=== PATIENT | female | born 1960 | race Caucasian/White ===

== ENCOUNTER 2016-10-22 19:50 | Emergency (ER) | payer OTHER ==
--- NOTE | 2016-10-22 21:57 | ED ORDER SUMMARY ---
..... Patient: AGUS FRAGOSO OrderSheet [facility] VisitID: [id number] [address] [place] [address] 56y, F Registration Date/Time: 10/22/2016 ORDER SHEET Weight: 93.4 kg (stated) Allergies: Penicillins, Sulfa Antibiotics GENERAL ORDERS: CBC w Diff Urgent (20:03 10/22/2016 Rose CONDE) (Ack 20:05 [facility] Applied Anthropologist) (20:28 EInderbitzen R.N.) CMP Urgent (20:03 10/22/2016 Rose CONDE) (Ack 20:05 [facility] Applied Anthropologist) (20:28 EInderbitzen R.N.) PCT (Procalcitonin) Urgent (20:03 10/22/2016 Rose CONDE) (Ack 20:05 [facility] Applied Anthropologist) (20:28 EInderlesiazen R.N.) Lactate, Serum Urgent (20:03 10/22/2016 Rose CONDE) (Ack 20:05 [facility] Applied Anthropologist) (20:28 EInderbitzen R.N.) D-Dimer Urgent (20:16 10/22/2016 Rose CONDE) (Ack 20:17 [facility] Applied Anthropologist) (20:28 EInderbitzen R.N.) MEDICATION ORDERS: IV FLUIDS: IV NS : initial bolus none -, then 250 mL/hr (NOW); Urgent (20:02 10/22/2016 Rose CONDE) (Ack 20:05 ALOollier R.N.) (20:29 EInderbitzen R.N.) Dilaudid IV 0.5 mg (may repeat in 15min PRN pain) (20:43 10/22/2016 RCollier R.N. verbal order read back to Rose CONDE) (Ack 20:44 RCollier R.N.) (20:47 RCollier R.N.) Vancomycin IV 2 gm/500 mL (NOW) (20:55 10/22/2016 Rose CONDE) (21:04 EInderbitzen R.N.) ORDER SHEET NOTES: [Electronically signed by Elvira Mi R.N. (22:02 10/22/2016)] [Electronically signed by Hi Eden MD (23:13 10/22/2016)] [Electronically locked/signed by Elvira Mi R.N. (22:02 10/22/2016)]
--- NOTE | 2016-10-22 21:57 | ED ORDER SUMMARY ---
..... Patient: AGUS FRAGOSO OrderSheet [facility] VisitID: [id number] [address] [place] [address] 56y, F Registration Date/Time: 10/22/2016 ORDER SHEET Weight: 93.4 kg (stated) Allergies: Penicillins, Sulfa Antibiotics GENERAL ORDERS: CBC w Diff Urgent (20:03 10/22/2016 Rose CONDE) (Ack 20:05 [facility] Solder Technician) (20:28 EInderbitzen R.N.) CMP Urgent (20:03 10/22/2016 Rose CONDE) (Ack 20:05 [facility] Solder Technician) (20:28 EInderbitzen R.N.) PCT (Procalcitonin) Urgent (20:03 10/22/2016 Rose CONDE) (Ack 20:05 [facility] Solder Technician) (20:28 EInderlesiazen R.N.) Lactate, Serum Urgent (20:03 10/22/2016 Rose CONDE) (Ack 20:05 [facility] Solder Technician) (20:28 EInderbitzen R.N.) D-Dimer Urgent (20:16 10/22/2016 Rose CONDE) (Ack 20:17 [facility] Solder Technician) (20:28 EInderbitzen R.N.) MEDICATION ORDERS: IV FLUIDS: IV NS : initial bolus none -, then 250 mL/hr (NOW); Urgent (20:02 10/22/2016 Rose CONDE) (Ack 20:05 ALOollier R.N.) (20:29 EInderbitzen R.N.) Dilaudid IV 0.5 mg (may repeat in 15min PRN pain) (20:43 10/22/2016 RCollier R.N. verbal order read back to Rose CONDE) (Ack 20:44 RCollier R.N.) (20:47 RCollier R.N.) Vancomycin IV 2 gm/500 mL (NOW) (20:55 10/22/2016 Rose CONDE) (21:04 EInderbitzen R.N.) ORDER SHEET NOTES: [Electronically signed by Elvira Mi R.N. (22:02 10/22/2016)] [Electronically signed by Hi Eden MD (23:13 10/22/2016)] [Electronically locked/signed by Elvira Mi R.N. (22:02 10/22/2016)]
--- NOTE | 2016-10-22 21:57 | ED NURSING NOTES ---
Clinical Report - Nurses [facility] [address] [place] [address] 10/22/2016 19:52 [id number] Triage time 19:58. Acuity: LEVEL 3. Chief Complaint: POSSIBLE ALLERGIC REACTION and SWELLING Alert. No acute distress. --20:03 Ailyn Rojas R.N. 19:58 10/22/16. BP: 176/78. HR: 117. RR: 17 (regular and unlabored). O2 saturation: 100%. Temp: 98.4 F (oral). Jones-Mendenhall pain scale: 4/10. --20:03 Ailyn Rojas R.N. Weight: 93.4 kg stated. Height/Length: 65 inches Per Patient. BMI: 34.3. --20:00 Ailyn Rojas R.N. Medications Cymbalta Oral 30mg , daily. Lyrica Oral (pt unsure of dose ). Omeprazole Oral 20 mg, daily. Orencia Intravenous. Pepcid Oral, as needed. PredniSONE Oral 2.5 mg, daily, RA. --20:01 Ailyn Rojas R.N. Allergies Penicillins. --20:01 Ailyn Rojas R.N. Sulfa Antibiotics. --20:02 Ailyn Rojas R.N. History Arrived by private vehicle. Historian: patient. Primary physician (Sonya). ( pt states she steamed cleaned a car which had mold in it, pt woke up the next day with facial swelling, saw PCP 3 days ago.). Onset. (about 4 days ago). No difficulty breathing. PAST MEDICAL HX: Immunizations: status is unknown. SOCIAL HX: Never smoker. No alcohol use or drug use. NUTRITIONAL RISK ASSESSMENT: The nutritional risk assessment revealed no deficiencies. FUNCTIONAL ASSESSMENT: Functional assessment: no impairments noted. --20:03 Ailyn Rojas R.N. 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 (3 tablets today around 1300 (swelling got worse after Benadryl)). --20:05 Ailyn Rojas R.N. PROBLEMS: Cellulitis. MRSA Infection. Irritable Bowel Syndrome. Gastroesophageal Reflux Disease. Rheumatoid Arthritis. Rheumatic Fever. Arthritis. Fibromyalgia. --20:02 Ailyn Rojas R.N. ADDITIONAL SURGERIES: Cholecystectomy. --20:02 Ailyn Rojas R.N. Interventions ID band on patient. To treatment room. --20:03 Ailyn Rojas R.N. PHYSICAL ASSESSMENT Ambulatory to room. Patient gowned. GENERAL / NEURO / PSYCH: Alert. The patient does not appear to be in acute distress. Oriented X 4. HEENT: Mucous membranes are pink. RESPIRATORY: Respirations not labored. CVS: Capillary refill less than 2 seconds. SKIN: Skin is warm and dry. Swelling on the face- associated with erythema. --20:04 Ailyn Rojas R.N. NURSING PROGRESS NOTES Head of bed elevated. Two patient identifiers checked. Call light placed in reach. Side rails up x 1. Bed placed in lowest position. Brakes of bed on. --20:04 Ailyn Rojas R.N. Patient ready for evaluation- chart flagged. --20:04 Ailyn Rojas R.N. 20:22 10/22/2016 Site #1 started via IV in the left forearm with an 20g angiocath, with aseptic technique and good blood return; one attempt. Blood drawn: rainbow set. Labeled in the presence of the patient and sent to the lab. Saline lock flushed with 10 mL saline (lactic drawn and placed on ice). --20:28 Elvira Mi R.N. 20:22 10/22/2016 Started bag #1 250 mL IV Fluids IV NS (Saline); at 1000 mL/hr over 15 minute(s) via site #1. Allergies verified and confirmed 5 rights. IV patency established. IV site checked: no pain, redness, or swelling. IV flushed thoroughly pre- and post-medication administration. --20:29 Elvira Mi R.N. 20:45 10/22/2016 Dilaudid (HYDROmorphone HCl PF) IVP 0.5 mg given over 1 minute(s) via site #1. Allergies verified, confirmed 5 rights and sedative warning given to the patient. IV patency established. IV site checked: no pain, redness, or swelling. IV flushed thoroughly pre- and post-medication administration. IVP given by RN. --20:47 Ailyn Rojas R.N. 21:00 10/22/2016 Started 1 gm of Vancomycin IVPB in bag #1 200 mL; at 200 mL/hr over 1 hour(s) via site #1 via IV pump. Allergies verified and confirmed 5 rights. IV patency established. IV site checked: no pain, redness, or swelling. IV flushed thoroughly pre- and post-medication administration. --21:04 Elvira Mi R.N. 21:28 10/22/16. BP: 161/84. HR: 103. RR: 18. O2 saturation: 100%. Pain level now 7/10. --21:28 Elvira Mi R.N. 21:55 10/22/16. ( Report given to transport crew. RN will start [address] [place] [address].). --21:55 Elvira Mi R.N. 22:37 10/22/2016 IV Fluids IV NS Discontinued: bag #1 completed. Total amount infused: 250 mL. IV patency established. IV site checked: no pain, redness, or swelling. IV flushed thoroughly. --21:03 Elvira Mi R.N. DISPOSITION / DISCHARGE 21:45 10/22/2016 Site #[address] upon transfer; patent. --21:57 Elvira Mi R.N. 21:45 10/22/2016 Vancomycin IVPB Continued: upon transfer at the rate of 200 mL/hr. 50 mL remaining bag #1. IV patency established. IV site checked: no pain, redness, or swelling. IV flushed thoroughly. --21:56 Elvira Mi R.N. 21:57 10/22/16. Condition at departure: improved and stable. The goals identified in the patient's plan of care were met. Transferred to [facility]. Summary of care provided to transport team (direct to ED). Transported via ambulance by transport team with monitor and IV. --21:57 Elvira Mi R.N. 21:27 10/22/16. BP: 161/84. HR: 103. RR: 18. O2 saturation: 100%. Pain level now 710. 19:58 10/22/16. BP: 176/78. HR: 117. RR: 17 (regular and unlabored). O2 saturation: 100%. Temp: 98.4 F (oral). Jones-Mendenhall pain scale: 4/10. --21:57 Elvira Mi R.N. 22:01 10/22/16. Report was given to a nurse. (NETO Hanson). --22:01 Elvira Mi R.N. Departure time: 22:01 Oct 22 2016. --22:02 Elvira Mi R.N. Locked/Released at 10/22/2016 22:02 by Elvira Mi R.N.
--- NOTE | 2016-10-22 21:57 | ED NURSING NOTES ---
Clinical Report - Nurses [facility] [address] [place] [address] 10/22/2016 19:52 [id number] Triage time 19:58. Acuity: LEVEL 3. Chief Complaint: POSSIBLE ALLERGIC REACTION and SWELLING Alert. No acute distress. --20:03 Ailyn Rojas R.N. 19:58 10/22/16. BP: 176/78. HR: 117. RR: 17 (regular and unlabored). O2 saturation: 100%. Temp: 98.4 F (oral). Jones-Mendenhall pain scale: 4/10. --20:03 Ailyn Rojas R.N. Weight: 93.4 kg stated. Height/Length: 65 inches Per Patient. BMI: 34.3. --20:00 Ailyn Rojas R.N. Medications Cymbalta Oral 30mg , daily. Lyrica Oral (pt unsure of dose ). Omeprazole Oral 20 mg, daily. Orencia Intravenous. Pepcid Oral, as needed. PredniSONE Oral 2.5 mg, daily, RA. --20:01 Ailyn Rojas R.N. Allergies Penicillins. --20:01 Ailyn Rojas R.N. Sulfa Antibiotics. --20:02 Ailyn Rojas R.N. History Arrived by private vehicle. Historian: patient. Primary physician (Sonya). ( pt states she steamed cleaned a car which had mold in it, pt woke up the next day with facial swelling, saw PCP 3 days ago.). Onset. (about 4 days ago). No difficulty breathing. PAST MEDICAL HX: Immunizations: status is unknown. SOCIAL HX: Never smoker. No alcohol use or drug use. NUTRITIONAL RISK ASSESSMENT: The nutritional risk assessment revealed no deficiencies. FUNCTIONAL ASSESSMENT: Functional assessment: no impairments noted. --20:03 Ailyn Rojas R.N. 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 (3 tablets today around 1300 (swelling got worse after Benadryl)). --20:05 Ailyn Rojas R.N. PROBLEMS: Cellulitis. MRSA Infection. Irritable Bowel Syndrome. Gastroesophageal Reflux Disease. Rheumatoid Arthritis. Rheumatic Fever. Arthritis. Fibromyalgia. --20:02 Ailyn Rojas R.N. ADDITIONAL SURGERIES: Cholecystectomy. --20:02 Ailyn Rojas R.N. Interventions ID band on patient. To treatment room. --20:03 Ailyn Rojas R.N. PHYSICAL ASSESSMENT Ambulatory to room. Patient gowned. GENERAL / NEURO / PSYCH: Alert. The patient does not appear to be in acute distress. Oriented X 4. HEENT: Mucous membranes are pink. RESPIRATORY: Respirations not labored. CVS: Capillary refill less than 2 seconds. SKIN: Skin is warm and dry. Swelling on the face- associated with erythema. --20:04 Ailyn Rojas R.N. NURSING PROGRESS NOTES Head of bed elevated. Two patient identifiers checked. Call light placed in reach. Side rails up x 1. Bed placed in lowest position. Brakes of bed on. --20:04 Ailyn Rojas R.N. Patient ready for evaluation- chart flagged. --20:04 Ailyn Rojas R.N. 20:22 10/22/2016 Site #1 started via IV in the left forearm with an 20g angiocath, with aseptic technique and good blood return; one attempt. Blood drawn: rainbow set. Labeled in the presence of the patient and sent to the lab. Saline lock flushed with 10 mL saline (lactic drawn and placed on ice). --20:28 Elvira iM R.N. 20:22 10/22/2016 Started bag #1 250 mL IV Fluids IV NS (Saline); at 1000 mL/hr over 15 minute(s) via site #1. Allergies verified and confirmed 5 rights. IV patency established. IV site checked: no pain, redness, or swelling. IV flushed thoroughly pre- and post-medication administration. --20:29 Elvira Mi R.N. 20:45 10/22/2016 Dilaudid (HYDROmorphone HCl PF) IVP 0.5 mg given over 1 minute(s) via site #1. Allergies verified, confirmed 5 rights and sedative warning given to the patient. IV patency established. IV site checked: no pain, redness, or swelling. IV flushed thoroughly pre- and post-medication administration. IVP given by RN. --20:47 Ailyn Rojas R.N. 21:00 10/22/2016 Started 1 gm of Vancomycin IVPB in bag #1 200 mL; at 200 mL/hr over 1 hour(s) via site #1 via IV pump. Allergies verified and confirmed 5 rights. IV patency established. IV site checked: no pain, redness, or swelling. IV flushed thoroughly pre- and post-medication administration. --21:04 Elvira Mi R.N. 21:28 10/22/16. BP: 161/84. HR: 103. RR: 18. O2 saturation: 100%. Pain level now 7/10. --21:28 Elvira Mi R.N. 21:55 10/22/16. ( Report given to transport crew. RN will start [address] [place] [address].). --21:55 Elvira Mi R.N. 22:37 10/22/2016 IV Fluids IV NS Discontinued: bag #1 completed. Total amount infused: 250 mL. IV patency established. IV site checked: no pain, redness, or swelling. IV flushed thoroughly. --21:03 Elvira Mi R.N. DISPOSITION / DISCHARGE 21:45 10/22/2016 Site #[address] upon transfer; patent. --21:57 Elvira Mi R.N. 21:45 10/22/2016 Vancomycin IVPB Continued: upon transfer at the rate of 200 mL/hr. 50 mL remaining bag #1. IV patency established. IV site checked: no pain, redness, or swelling. IV flushed thoroughly. --21:56 Elvira Mi R.N. 21:57 10/22/16. Condition at departure: improved and stable. The goals identified in the patient's plan of care were met. Transferred to [facility]. Summary of care provided to transport team (direct to ED). Transported via ambulance by transport team with monitor and IV. --21:57 Elvira Mi R.N. 21:27 10/22/16. BP: 161/84. HR: 103. RR: 18. O2 saturation: 100%. Pain level now 710. 19:58 10/22/16. BP: 176/78. HR: 117. RR: 17 (regular and unlabored). O2 saturation: 100%. Temp: 98.4 F (oral). Jones-Mendenhall pain scale: 4/10. --21:57 Elvira Mi R.N. 22:01 10/22/16. Report was given to a nurse. (NETO Hanson). --22:01 Elvira Mi R.N. Departure time: 22:01 Oct 22 2016. --22:02 Elvira Mi R.N. Locked/Released at 10/22/2016 22:02 by Elvira Mi R.N.
--- NOTE | 2016-10-22 21:57 | ED CLINICAL REPORT ---
Clinical Report - Physicians/Mid Levels [facility] [address] [place] [address] 10/22/2016 19:52 Patient: AGUS FRAGOSO Time Seen: 20:00. Arrived- By private vehicle. HISTORY OF PRESENT ILLNESS Chief Complaint: FACIAL SWELLING. This started about 4 days ago.; Symptoms temporally associated with cleaning mold in an enclosed spake. The eyes did not burn with the use of the mold sheet cleaner. The swelling Started Wednesday (4 days ago) with sore inside nose on L and outside puffy in both sides. PCP, Sonya Wed - Thought it was mold and chemicals Tx with Prednisone - 40 mg prednisone. Tues: Working around the car, Cheeks and eye lids swollen and swollen in [place].. [facility] [place] - Rx prednisone 80 mg, ranitidine one daily, Benadryl 50 mg and 75 mg today. and is still present. It was gradual in onset. The patient has had a skin rash and swelling. No cause has been identified. The patient self administered medication prior to arrival including Benadryl and steroids. Similar symptoms previously: ( History of MRSA. Those episodes were much milder.). Recent medical care: The patient was seen recently by a health care provider. ( two prior healthcare evaluations for this illness.). REVIEW OF SYSTEMS The patient has had eye problems, skin lesion; and a headache. No fever, double vision, ear pain, sore throat or chest pain. No cough, difficulty breathing, abdominal pain, black stools or bloody stools. No diarrhea, nausea, vomiting or difficulty with urination. The patient has missed periods (menopause). All systems otherwise negative, except as recorded above. PAST HISTORY PCP: Jordan Leone Ops: GB Illness: RA, fipromyalgia, osteoarthritis. Medications: Cymbalta Oral 30mg , daily. Lyrica Oral (pt unsure of dose ). Omeprazole Oral 20 mg, daily. Orencia Intravenous. Pepcid Oral, as needed. PredniSONE Oral 2.5 mg, daily, RA. Allergies: Penicillins. Sulfa Antibiotics. SOCIAL HISTORY Never smoker. ADDITIONAL NOTES The nursing notes have been reviewed. PHYSICAL EXAM Vital Signs: 10/22/2016 19:58 BP: 176/78. HR: 117. RR: 17. O2 saturation: 100%. Temp: 98.4 F. Jones-Mendenhall pain scale: 4/10. Appearance: Alert. Patient in moderate distress. (Uncomfortable from facial swelling. Normal voice and clear lungs.). Eyes: Conjunctival findings present (cannot visualize the R eye due to lid swelling). No redness on the left or exudate on the left. (Swelling, erythema and warmth greatest over the R cheek, less but quite significant over the L cheek and forehead. EOM painless.). ENT: No muffled or hoarse voice, drooling or pharyngeal erythema. Neck: No lymphadenopathy. CVS: Normal heart rate and rhythm. Respiratory: No respiratory distress. No respiratory distress. Breath sounds normal. No stridor. Abdomen: Nontender. No organomegaly. Extremities: Normal external inspection. Extremities nontender. (changes CW RA). Skin: No urticaria. LABS, X-RAYS, AND EKG Laboratory Tests: CBC w Diff: (KELL: 10/22/2016 20:22) ( MsgRcvd 10/22/2016 21:05) Final results Test Result Flag Units (Reference) WHITE BLOOD COUNT 24.5 H K/uL (4.5-11.5) MANUAL DIFFERENTIAL TO FOLLOW. RED BLOOD COUNT 3.71 L M/uL (4.00-5.20) HEMOGLOBIN 11.5 L gm/dL (12.0-16.0) HEMATOCRIT 34.2 L % (36.0-46.0) MEAN CELL VOLUME 92 fL (80-100) MEAN CORPUSCULAR HGB 31 pg (26-34) MEAN CORPUSCULAR HGB CONC 34 g/dL (31-37) RED CELL DISTRIBUTION WIDTH 13.4 % (11.6-14.8) PLATELET COUNT 223 K/uL (150-400) POLY % 80 H % (50-75) BAND % 7 % (0-8) LYMPH 8 L % (25-40) MONO 5 % (3-14) EOSINOPHIL % 0 % (0-4) BASOPHIL % 0 % (0-2) METAMYELOCYTE % 0 % (0-1) MYELOCYTE 0 % (0-1) OTHER CELL TYPE 0 RBC MORPHOLOGY NORMAL [id number]: (KELL: 10/22/2016 20:22) ( [facility] 10/22/2016 20:48) Final results Test Result Flag Units (Reference) D-DIMER QUANTITATIVE 1.04 H ug/mLFEU (0.27-0.52) The primary value of this quantitative assay relates toits negative predictive value (i.e. exclusion) of pulmonaryembolism/deep vein thrombosis/DIC.Elevated levels of d-dimer may also occur with:, age, cancer, inflammation, liver disease,post-op, infection, hematoma, coronary disease, peripheralarteriopathy, bleeding disorders and thrombolytic treatment.Results should be correlated with other clinical andradiological data.Testing Methodology: Latex Immunoassay Lactate, Serum: (KELL: 10/22/2016 20:22) ( [facility] 10/22/2016 21:05) Final results Test Result Flag Units (Reference) LACTIC ACID 1.8 mmol/L (0.4-2.0) [id number]: (KELL: 10/22/2016 20:22) ( [facility] 10/22/2016 21:25) Final results Test Result Flag Units (Reference) PROCALCITONIN <0.5 ng/mL (0-0.5) PCT Concentration: Interpretation : Risk/option for action PCT <=0.5 ng/mL : Systemic : Low risk forinfection(sepsis): progression to severeis not likely. : systemic infection.Local bacterial : CAUTION-PCT levelsinfection is : below 0.5 ng/mL do notpossible. : exclude an infection,because localizedinfections (withoutsystemic signs) may beassociated with suchlow levels. If PCT ismeasured very earlyafter a bacterialchallenge (usually <6hours), these valuesmay still be low. Inthis case PCT shouldbe re-assessed 6-24hours later. PCT >0.5 and : Systemic infection: Moderate risk for<= 2 ng/mL : (sepsis) is : progression to severepossible, but : systemic infection.other conditions : The patient should beare known to : closely monitoredelevate PCT. : both clinically andby re-assessing PCTwithin 6-24 hours. PCT > 2 ng/mL : Systemic infection: High risk for(sepsis) is likely: progression to severeunless other : systemic infection.causes are known. : PCT >= 10 ng/mL : Important systemic: High likelihood ofinflammatory : severe sepsis orresponse, almost : septic shock.exclusively due to:severe bacterial :sepsis or septic :shock. : CMP: (KELL: 10/22/2016 20:22) ( MsgRcvd 10/22/2016 20:54) Final results Test Result Flag Units (Reference) GLUCOSE 188 H mg/dL (70-110) BUN 23 H mg/dL (7-18) CREATININE 1.4 H mg/dL (0.6-1.3) Estimated GFR 41.34 mL/min Estimated GFR- 50.11 mL/min Note: Persistent reduction over 3 months in eGFR<60 mL/min/1.73 m2 defines CKD. Patients with eGFR values>=60 mL/min/1.73 m2 may also have CKD if evidence ofpersistent proteinuria. Additional information may be foundat www.kidney.org. SODIUM 134 L mmol/L (136-145) POTASSIUM 3.7 mmol/L (3.5-5.1) CHLORIDE 98 mmol/L (98-107) CARBON DIOXIDE 23 mmol/L (21-32) CALCIUM 8.9 mg/dL (8.5-10.1) TOTAL PROTEIN 7.4 g/dL (6.4-8.2) ALBUMIN 3.2 L g/dL (3.3-5.0) BILIRUBIN, TOTAL 0.5 mg/dL (0.0-1.0) ALKALINE PHOSPHATASE 114 U/L (46-116) AST (SGOT) 36 U/L (15-37) ALT (SGPT) 95 H U/L (12-78) . PROGRESS AND PROCEDURES Course of Care: 20:00 10/22/16. initial exam - intact airway and respiration. Moderate to marked swelling of the face. 20:32 10/22/16. Warm skin - tender and edema. Facial cellulitis is most likely, venous sinus thrombosis far less likely but an important consideration. Allergy seems quite unlikely. Nothing to culture will start vancomycin pending other studies. She will need a CT but our CT will not be functional in the next 12 plus hours. Will obtain baseline labs. Initiate culture then discuss findings with another facility. 21:13 10/22/16. 4 days of increasing facial swelling and pain in an immune compromised woman with the appearance of facial cellulitis. Vanco is ordered. CT here is not functional. I discussed the patient with Dr Vonda Carter [place] [facility] who agrees to see her in the ED in and ED to ED transfer. 21:28 10/22/16. Elvira Carrillo RN tells me she will call the ED charge nurse. I have called EDMD. Transfer form is completed. 21:57 10/22/16. Pt is now enroute to [facility] ED via ALS. 23:11 10/22/16. PCT available following the patient's transfer to [facility]. Disposition: Transferred. CLINICAL IMPRESSION FACIAL CELLULITIS IMMUNOSUPPRESION HISTORY OF RA. (Electronically signed by Hi Eden MD 10/22/2016 23:13)
--- NOTE | 2016-10-22 21:57 | ED CLINICAL REPORT ---
Clinical Report - Physicians/Mid Levels [facility] [address] [place] [address] 10/22/2016 19:52 Patient: AGUS FRAGOSO Time Seen: 20:00. Arrived- By private vehicle. HISTORY OF PRESENT ILLNESS Chief Complaint: FACIAL SWELLING. This started about 4 days ago.; Symptoms temporally associated with cleaning mold in an enclosed spake. The eyes did not burn with the use of the boat cleaner. The swelling Started Wednesday (4 days ago) with sore inside nose on L and outside puffy in both sides. PCP, Sonya Wed - Thought it was mold and chemicals Tx with Prednisone - 40 mg prednisone. Tues: Working around the car, Cheeks and eye lids swollen and swollen in [place].. [facility] Wednesday [place] - Rx prednisone 80 mg, ranitidine one daily, Benadryl 50 mg and 75 mg today. and is still present. It was gradual in onset. The patient has had a skin rash and swelling. No cause has been identified. The patient self administered medication prior to arrival including Benadryl and steroids. Similar symptoms previously: ( History of MRSA. Those episodes were much milder.). Recent medical care: The patient was seen recently by a health care provider. ( two prior healthcare evaluations for this illness.). REVIEW OF SYSTEMS The patient has had eye problems, skin lesion; and a headache. No fever, double vision, ear pain, sore throat or chest pain. No cough, difficulty breathing, abdominal pain, black stools or bloody stools. No diarrhea, nausea, vomiting or difficulty with urination. The patient has missed periods (menopause). All systems otherwise negative, except as recorded above. PAST HISTORY PCP: Jordan Leone Ops: GB Illness: RA, fipromyalgia, osteoarthritis. Medications: Cymbalta Oral 30mg , daily. Lyrica Oral (pt unsure of dose ). Omeprazole Oral 20 mg, daily. Orencia Intravenous. Pepcid Oral, as needed. PredniSONE Oral 2.5 mg, daily, RA. Allergies: Penicillins. Sulfa Antibiotics. SOCIAL HISTORY Never smoker. ADDITIONAL NOTES The nursing notes have been reviewed. PHYSICAL EXAM Vital Signs: 10/22/2016 19:58 BP: 176/78. HR: 117. RR: 17. O2 saturation: 100%. Temp: 98.4 F. Jones-Mendenhall pain scale: 4/10. Appearance: Alert. Patient in moderate distress. (Uncomfortable from facial swelling. Normal voice and clear lungs.). Eyes: Conjunctival findings present (cannot visualize the R eye due to lid swelling). No redness on the left or exudate on the left. (Swelling, erythema and warmth greatest over the R cheek, less but quite significant over the L cheek and forehead. EOM painless.). ENT: No muffled or hoarse voice, drooling or pharyngeal erythema. Neck: No lymphadenopathy. CVS: Normal heart rate and rhythm. Respiratory: No respiratory distress. No respiratory distress. Breath sounds normal. No stridor. Abdomen: Nontender. No organomegaly. Extremities: Normal external inspection. Extremities nontender. (changes CW RA). Skin: No urticaria. LABS, X-RAYS, AND EKG Laboratory Tests: CBC w Diff: (KELL: 10/22/2016 20:22) ( MsgRcvd 10/22/2016 21:05) Final results Test Result Flag Units (Reference) WHITE BLOOD COUNT 24.5 H K/uL (4.5-11.5) MANUAL DIFFERENTIAL TO FOLLOW. RED BLOOD COUNT 3.71 L M/uL (4.00-5.20) HEMOGLOBIN 11.5 L gm/dL (12.0-16.0) HEMATOCRIT 34.2 L % (36.0-46.0) MEAN CELL VOLUME 92 fL (80-100) MEAN CORPUSCULAR HGB 31 pg (26-34) MEAN CORPUSCULAR HGB CONC 34 g/dL (31-37) RED CELL DISTRIBUTION WIDTH 13.4 % (11.6-14.8) PLATELET COUNT 223 K/uL (150-400) POLY % 80 H % (50-75) BAND % 7 % (0-8) LYMPH 8 L % (25-40) MONO 5 % (3-14) EOSINOPHIL % 0 % (0-4) BASOPHIL % 0 % (0-2) METAMYELOCYTE % 0 % (0-1) MYELOCYTE 0 % (0-1) OTHER CELL TYPE 0 RBC MORPHOLOGY NORMAL [id number]: (KELL: 10/22/2016 20:22) ( [facility] 10/22/2016 20:48) Final results Test Result Flag Units (Reference) D-DIMER QUANTITATIVE 1.04 H ug/mLFEU (0.27-0.52) The primary value of this quantitative assay relates toits negative predictive value (i.e. exclusion) of pulmonaryembolism/deep vein thrombosis/DIC.Elevated levels of d-dimer may also occur with:, age, cancer, inflammation, liver disease,post-op, infection, hematoma, coronary disease, peripheralarteriopathy, bleeding disorders and thrombolytic treatment.Results should be correlated with other clinical andradiological data.Testing Methodology: Latex Immunoassay Lactate, Serum: (KELL: 10/22/2016 20:22) ( [facility] 10/22/2016 21:05) Final results Test Result Flag Units (Reference) LACTIC ACID 1.8 mmol/L (0.4-2.0) [id number]: (KELL: 10/22/2016 20:22) ( [facility] 10/22/2016 21:25) Final results Test Result Flag Units (Reference) PROCALCITONIN <0.5 ng/mL (0-0.5) PCT Concentration: Interpretation : Risk/option for action PCT <=0.5 ng/mL : Systemic : Low risk forinfection(sepsis): progression to severeis not likely. : systemic infection.Local bacterial : CAUTION-PCT levelsinfection is : below 0.5 ng/mL do notpossible. : exclude an infection,because localizedinfections (withoutsystemic signs) may beassociated with suchlow levels. If PCT ismeasured very earlyafter a bacterialchallenge (usually <6hours), these valuesmay still be low. Inthis case PCT shouldbe re-assessed 6-24hours later. PCT >0.5 and : Systemic infection: Moderate risk for<= 2 ng/mL : (sepsis) is : progression to severepossible, but : systemic infection.other conditions : The patient should beare known to : closely monitoredelevate PCT. : both clinically andby re-assessing PCTwithin 6-24 hours. PCT > 2 ng/mL : Systemic infection: High risk for(sepsis) is likely: progression to severeunless other : systemic infection.causes are known. : PCT >= 10 ng/mL : Important systemic: High likelihood ofinflammatory : severe sepsis orresponse, almost : septic shock.exclusively due to:severe bacterial :sepsis or septic :shock. : CMP: (KELL: 10/22/2016 20:22) ( MsgRcvd 10/22/2016 20:54) Final results Test Result Flag Units (Reference) GLUCOSE 188 H mg/dL (70-110) BUN 23 H mg/dL (7-18) CREATININE 1.4 H mg/dL (0.6-1.3) Estimated GFR 41.34 mL/min Estimated GFR- 50.11 mL/min Note: Persistent reduction over 3 months in eGFR<60 mL/min/1.73 m2 defines CKD. Patients with eGFR values>=60 mL/min/1.73 m2 may also have CKD if evidence ofpersistent proteinuria. Additional information may be foundat www.kidney.org. SODIUM 134 L mmol/L (136-145) POTASSIUM 3.7 mmol/L (3.5-5.1) CHLORIDE 98 mmol/L (98-107) CARBON DIOXIDE 23 mmol/L (21-32) CALCIUM 8.9 mg/dL (8.5-10.1) TOTAL PROTEIN 7.4 g/dL (6.4-8.2) ALBUMIN 3.2 L g/dL (3.3-5.0) BILIRUBIN, TOTAL 0.5 mg/dL (0.0-1.0) ALKALINE PHOSPHATASE 114 U/L (46-116) AST (SGOT) 36 U/L (15-37) ALT (SGPT) 95 H U/L (12-78) . PROGRESS AND PROCEDURES Course of Care: 20:00 10/22/16. initial exam - intact airway and respiration. Moderate to marked swelling of the face. 20:32 10/22/16. Warm skin - tender and edema. Facial cellulitis is most likely, venous sinus thrombosis far less likely but an important consideration. Allergy seems quite unlikely. Nothing to culture will start vancomycin pending other studies. She will need a CT but our CT will not be functional in the next 12 plus hours. Will obtain baseline labs. Initiate culture then discuss findings with another facility. 21:13 10/22/16. 4 days of increasing facial swelling and pain in an immune compromised woman with the appearance of facial cellulitis. Vanco is ordered. CT here is not functional. I discussed the patient with Dr Vonda Carter [place] [facility] who agrees to see her in the ED in and ED to ED transfer. 21:28 10/22/16. Elvira Carrillo RN tells me she will call the ED charge nurse. I have called EDMD. Transfer form is completed. 21:57 10/22/16. Pt is now enroute to [facility] ED via ALS. 23:11 10/22/16. PCT available following the patient's transfer to [facility]. Disposition: Transferred. CLINICAL IMPRESSION FACIAL CELLULITIS IMMUNOSUPPRESION HISTORY OF RA. (Electronically signed by Hi Eden MD 10/22/2016 23:13)
--- NOTE | 2016-10-22 23:14 | ED DISCHARGE INSTRUCTIONS ---
Patient: AGUS FRAGOSO General Instructions [facility] VisitID: [id number] [address] [place] [address] 56y, F Registration Date/Time: 10/22/2016 FACIAL CELLULITIS IMMUNOSUPPRESION HISTORY OF RA. (Electronically signed by Hi Eden MD 10/22/2016 23:13)
--- NOTE | 2016-10-22 23:14 | ED MED RECONCILIATION SUMMARY ---
Patient: AGUS FRAGOSO Medication Reconciliation Report [facility] VisitID: [id number] [address] [place] [address] 56y, F Registration Date/Time: 10/22/2016 Weight: 93.4 kg Height/Length: 65 in. BMI: 34.3 ALLERGIES: Penicillins, Sulfa Antibiotics The patient's Home Medications are listed below: THE FOLLOWING MEDICATIONS NEED TO BE RECONCILED: Cymbalta Oral 30mg , daily Lyrica Oral, pt unsure of dose Omeprazole Oral 20 mg, daily Orencia Intravenous Pepcid Oral PredniSONE Oral 2.5 mg, daily, RA The source(s) of the original Home Medication information: Not obtained. The following Medications were given to the patient in the Emergency Department: IV NS IV Fluids bolus 0, then 1000 mL/hr, administered: 10/22/2016 8:22:00 PM Dilaudid [IVP] IVP 0.5 mg, administered: 10/22/2016 8:45:00 PM Vancomycin [IVPB] IVPB bolus 0, then 1 gm 200 mL/hr, administered: 10/22/2016 9:00:00 PM The following Medications were prescribed to the patient: None.
--- NOTE | 2016-10-22 23:14 | ED MAR SUMMARY ---
..... Medication Administration Record [facility] [address] [place] [address] Patient: AGUS FRAGOSO Visit ID: [id number] 56y, F Weight: 93.4 kg Height/Length: 65 in BMI: 34.3 ALLERGIES: Sulfa Antibiotics, Penicillins Start 20:22 10/22/2016 Elvira Mi R.N., Stop 22:37 10/22/2016 Elvira Mi R.N. Medication Administered: IV NS (SALINE), Dose: IV Fluids over 15 minute(s), Rate: 1000 mL/hr, Dispensed: 250 mL bag, Site: #1 left forearm. Medication Ordered: IV NS : initial bolus none -, then 250 mL/hr (NOW); Urgent. Given 20:45 10/22/2016 Ailyn Rojas R.N. Medication Administered: DILAUDID [IVP] (HYDROMORPHONE HCL PF), Dose: 0.5 mg IVP over 1 minute(s), Site: #1 left forearm. Medication Ordered: Dilaudid IV 0.5 mg (may repeat in 15min PRN pain). Start 21:00 10/22/2016 Elvira Mi R.N., Continued Upon Transfer 21:45 10/22/2016 Elvira Mi R.N. Medication Administered: VANCOMYCIN [IVPB], Dose: 1 gm IVPB over 1 hour(s), Rate: 200 mL/hr, Dispensed: 200 mL bag, Site: #1 left forearm. Medication Ordered: Vancomycin IV 2 gm/500 mL (NOW).
--- NOTE | 2016-10-22 23:14 | ED MED RECONCILIATION SUMMARY ---
Patient: AGUS FRAGOSO Medication Reconciliation Report [facility] VisitID: [id number] [address] [place] [address] 56y, F Registration Date/Time: 10/22/2016 Weight: 93.4 kg Height/Length: 65 in. BMI: 34.3 ALLERGIES: Penicillins, Sulfa Antibiotics The patient's Home Medications are listed below: THE FOLLOWING MEDICATIONS NEED TO BE RECONCILED: Cymbalta Oral 30mg , daily Lyrica Oral, pt unsure of dose Omeprazole Oral 20 mg, daily Orencia Intravenous Pepcid Oral PredniSONE Oral 2.5 mg, daily, RA The source(s) of the original Home Medication information: Not obtained. The following Medications were given to the patient in the Emergency Department: IV NS IV Fluids bolus 0, then 1000 mL/hr, administered: 10/22/2016 8:22:00 PM Dilaudid [IVP] IVP 0.5 mg, administered: 10/22/2016 8:45:00 PM Vancomycin [IVPB] IVPB bolus 0, then 1 gm 200 mL/hr, administered: 10/22/2016 9:00:00 PM The following Medications were prescribed to the patient: None.
--- NOTE | 2016-10-22 23:14 | ED DISCHARGE INSTRUCTIONS ---
Patient: AGUS FRAGOSO General Instructions [facility] VisitID: [id number] [address] [place] [address] 56y, F Registration Date/Time: 10/22/2016 FACIAL CELLULITIS IMMUNOSUPPRESION HISTORY OF RA. (Electronically signed by Hi Eden MD 10/22/2016 23:13)
--- NOTE | 2016-10-22 23:14 | ED MAR SUMMARY ---
..... Medication Administration Record [facility] [address] [place] [address] Patient: AGUS FRAGOSO Visit ID: [id number] 56y, F Weight: 93.4 kg Height/Length: 65 in BMI: 34.3 ALLERGIES: Sulfa Antibiotics, Penicillins Start 20:22 10/22/2016 Elvira Mi R.N., Stop 22:37 10/22/2016 Elvira Mi R.N. Medication Administered: IV NS (SALINE), Dose: IV Fluids over 15 minute(s), Rate: 1000 mL/hr, Dispensed: 250 mL bag, Site: #1 left forearm. Medication Ordered: IV NS : initial bolus none -, then 250 mL/hr (NOW); Urgent. Given 20:45 10/22/2016 Ailyn Rojas R.N. Medication Administered: DILAUDID [IVP] (HYDROMORPHONE HCL PF), Dose: 0.5 mg IVP over 1 minute(s), Site: #1 left forearm. Medication Ordered: Dilaudid IV 0.5 mg (may repeat in 15min PRN pain). Start 21:00 10/22/2016 Elvira Mi R.N., Continued Upon Transfer 21:45 10/22/2016 Elvira Mi R.N. Medication Administered: VANCOMYCIN [IVPB], Dose: 1 gm IVPB over 1 hour(s), Rate: 200 mL/hr, Dispensed: 200 mL bag, Site: #1 left forearm. Medication Ordered: Vancomycin IV 2 gm/500 mL (NOW).
== END 2016-10-22 22:00 | disposition short-term general hospital (02) ==
LOC: ED SRH 19:50
DX: L03.211 Cellulitis of face (principal); M06.9 Rheumatoid arthritis, unspecified; Z86.14 Personal history of Methicillin resistant Staphylococcus aureus infection; Z88.0 Allergy status to penicillin; Z88.2 Allergy status to sulfonamides; K21.9 Gastro-esophageal reflux disease without esophagitis
CPT/HCPCS: 90100; 91556; 91643; 92031; 93004; 95059